=== PATIENT | female | born 1995 | race African-American/Black ===

== ENCOUNTER 2016-09-15 14:56 | Emergency (ER) | payer OTHER ==
[2016-09-15] MEDS ORDERED: SODIUM CHLORIDE 0.9% 1,000 ML IV STA (16:47)
--- NOTE | 2016-09-15 16:49 | ED ---
General Adult HPI - General Chief complaint: Vaginal Bleeding Stated complaint: Female WILL Time Seen by Provider: 09/15/16 16:40 Source: patient, RN notes reviewed Mode of arrival: ambulatory Limitations: no limitations - History of Present Illness Initial comments: Patient is a 20-year-old female with no significant past medical history, who presents emergency room today with chief complaint of vaginal bleeding over the last 2 weeks. She does admit that she's approximately 2 months from last menstrual cycle. She states she did go to clinic earlier today had ultrasound and was advised come here to the emergency room for further evaluation. States that they told her they saw line on the ultrasound. States he did not tell any other information. She does admit that pain comes and goes in the lower abdomen. She also admits that bleeding seems to come and go as well over the past 2 weeks. She states she's on average going through approximately 2 pads per day and she denies any other complaints or symptoms. Patient denies any recent fever, chills, shortness of breath, chest pain, back pain, abdominal pain, nausea or vomiting, numbness or tingling, dysuria or hematuria, constipation or diarrhea, headaches or visual changes, or any other complaints. - Related Data Home Medications Medication Instructions Recorded Confirmed Albuterol Inhaler [Ventolin Hfa 2 puff INHALATION RT-Q6H PRN 09/15/16 09/15/16 Inhaler] Pnv,Calcium 72/Iron/Folic Acid 1 tab PO DAILY 09/15/16 09/15/16 [ Plus Tablet] Allergies Allergy/AdvReac Type Severity Reaction Status Date / Time No Known Allergies Allergy Verified 09/15/16 16:38 Review of Systems ROS Statement: Those systems with pertinent positive or pertinent negative responses have been documented in the HPI. ROS Other: All systems not noted in ROS Statement are negative. Past Medical History Past Medical History: No Reported History History of Any Multi-Drug Resistant Organisms: None Reported Additional Past Surgical History / Comment(s): feet Past Psychological History: No Psychological Hx Reported Smoking Status: Never smoker Past Alcohol Use History: None Reported Past Drug Use History: None Reported General Exam - General Exam Comments Initial Comments: General: The patient is awake and alert, in no distress, and does not appear acutely ill. Eye: Pupils are equal, round and reactive to light, extra-ocular movements are intact. No nystagmus. There is normal conjunctiva bilaterally. No signs of icterus. Ears, nose, mouth and throat: There are moist mucous membranes and no oral lesions. Neck: The neck is supple, there is no tenderness or JVD. Cardiovascular: There is a regular rate and rhythm. No murmur, rub or gallop is appreciated. Respiratory: Lungs are clear to auscultation, respirations are non-labored, breath sounds are equal. No wheezes, stridor, rales, or rhonchi. Gastrointestinal: Soft, non-distended, non-tender abdomen without masses or organomegaly noted. There is no rebound or guarding present. No CVA tenderness. Bowel sounds are unremarkable. Musculoskeletal: Normal ROM, no tenderness. Strength 5/5. Sensation intact. Pulses equal bilaterally 2+. Neurological: A&O x 3. CN II-XII intact, There are no obvious motor or sensory deficits. Coordination appears grossly intact. Speech is normal. Skin: Skin is warm and dry and no rashes or lesions are noted. Psychiatric: Cooperative, appropriate mood & affect, normal judgment. Limitations: no limitations Course Vital Signs 09/15/16 09/15/16 09/15/16 15:10 17:15 18:26 Temperature 99.0 F Pulse Rate 114 H 73 84 Respiratory 16 18 16 Rate Blood Pressure 164/98 131/87 133/79 O2 Sat by Pulse 97 100 100 Oximetry Medical Decision Making - Medical Decision Making Patient reexamined at this time shows no signs of distress. Resting comfortably in the stretcher. Her ultrasound shows a left-sided ovarian cyst. She is no evidence of IUP. Patient's beta hCG greater than 4000. Patient has no abdominal pain. Abdomen is soft nontender. She does admit to vaginal bleeding over the last 2 weeks. She been using 2 pads per day. She is Rh+. His results were discussed with attending physician Dr. Foley. Patient will be discharged home advised follow-up with her SECURITY ENGINEER. She states she has an appointment in 2 days. She'll have a prescription to have repeat beta hCG testing in 2 days. Advised return here to the emergency room if any symptoms increase or worsen. She states understanding and is in agreement. - Lab Data Result diagrams: 09/15/16 17:40 09/15/16 17:40 Lab Results 09/15/16 09/15/16 09/15/16 Range/Units 17:40 17:40 17:40 WBC 6.4 (4.0-11.0) k/uL RBC 4.48 (3.80-5.40) m/uL Hgb 14.4 (11.4-16.0) gm/dL Hct 40.5 (34.0-46.0) % MCV 90.5 (80.0-100.0) fL MCH 32.2 (25.0-35.0) pg MCHC 35.6 (31.0-37.0) g/dL RDW 12.1 (11.5-15.5) % Plt Count 217 (150-450) k/uL Neutrophils % 64 % Lymphocytes % 27 % Monocytes % 3 % Eosinophils % 2 % Basophils % 1 % Neutrophils # 4.1 (1.3-7.7) k/uL Lymphocytes # 1.7 (1.0-4.8) k/uL Monocytes # 0.2 (0-1.0) k/uL Eosinophils # 0.1 (0-0.7) k/uL Basophils # 0.0 (0-0.2) k/uL Sodium 141 (137-145) mmol/L Potassium 4.1 (3.5-5.1) mmol/L Chloride 104 (98-107) mmol/L Carbon Dioxide 24 (22-30) mmol/L Anion Gap 13 mmol/L BUN 11 (7-17) mg/dL Creatinine 0.70 (0.52-1.04) mg/dL Est GFR (MDRD) Af Amer >60 (>60 ml/min/1.73 sqM) Est GFR (MDRD) Non-Af >60 (>60 ml/min/1.73 sqM) Glucose 72 L (74-99) mg/dL Calcium 10.0 (8.4-10.2) mg/dL Total Bilirubin 0.6 (0.2-1.3) mg/dL AST 30 (14-36) U/L ALT 23 (9-52) U/L Alkaline Phosphatase 50 (38-126) U/L Total Protein 8.0 (6.3-8.2) g/dL Albumin 4.8 (3.5-5.0) g/dL HCG, Quant 4852.2 mIU/mL Urine Color Urine Appearance (Clear) Urine pH (5.0-8.0) Ur Specific Marydel (1.001-1.035) Urine Protein (Negative) Urine Glucose (UA) (Negative) Urine Ketones (Negative) Urine Blood (Negative) Urine Nitrite (Negative) Urine Bilirubin (Negative) Urine Urobilinogen (<2.0) mg/dL Ur Leukocyte Esterase (Negative) Ur Squamous Epith Cells (0-4) /hpf Blood Type O Positive Blood Type Recheck No 09/15/16 Range/Units 17:40 WBC (4.0-11.0) k/uL RBC (3.80-5.40) m/uL Hgb (11.4-16.0) gm/dL Hct (34.0-46.0) % MCV (80.0-100.0) fL MCH (25.0-35.0) pg MCHC (31.0-37.0) g/dL RDW (11.5-15.5) % Plt Count (150-450) k/uL Neutrophils % % Lymphocytes % % Monocytes % % Eosinophils % % Basophils % % Neutrophils # (1.3-7.7) k/uL Lymphocytes # (1.0-4.8) k/uL Monocytes # (0-1.0) k/uL Eosinophils # (0-0.7) k/uL Basophils # (0-0.2) k/uL Sodium (137-145) mmol/L Potassium (3.5-5.1) mmol/L Chloride (98-107) mmol/L Carbon Dioxide (22-30) mmol/L Anion Gap mmol/L BUN (7-17) mg/dL Creatinine (0.52-1.04) mg/dL Est GFR (MDRD) Af Amer (>60 ml/min/1.73 sqM) Est GFR (MDRD) Non-Af (>60 ml/min/1.73 sqM) Glucose (74-99) mg/dL Calcium (8.4-10.2) mg/dL Total Bilirubin (0.2-1.3) mg/dL AST (14-36) U/L ALT (9-52) U/L Alkaline Phosphatase (38-126) U/L Total Protein (6.3-8.2) g/dL Albumin (3.5-5.0) g/dL HCG, Quant mIU/mL Urine Color Colorless Urine Appearance Clear (Clear) Urine pH 7.5 (5.0-8.0) Ur Specific Marydel 1.002 (1.001-1.035) Urine Protein Negative (Negative) Urine Glucose (UA) Negative (Negative) Urine Ketones Negative (Negative) Urine Blood Small H (Negative) Urine Nitrite Negative (Negative) Urine Bilirubin Negative (Negative) Urine Urobilinogen <2.0 (<2.0) mg/dL Ur Leukocyte Esterase Negative (Negative) Ur Squamous Epith Cells <1 (0-4) /hpf Blood Type Blood Type Recheck Disposition Clinical Impression: Threatened Disposition: HOME SELF-CARE Condition: Good Instructions: Threatened Miscarriage (ED) Additional Instructions: Please follow-up with your scheduled appointment with her SECURITY ENGINEER in 2 days. Please have repeat blood test performed in 2 days here at the outpatient lab. Please return to emergency room if symptoms increase or worsen or for any other concerns as discussed. Referrals: Ernie Crain DO [Primary Care Provider] - 1-2 days Time of Disposition: 18:42
[2016-09-15 17:56] LABS: Basophils % (A) 1 %; CH 32.1; CHCM 35.6; Eosinophils # (A) 0.1 k/uL (0-0.7); Eosinophils % (A) 2 %; HCT 40.5 % (34.0-46.0); HDW 2.36; HGB 14.4 gm/dL (11.4-16.0); Luc # (Auto) 0.19; Luc % (Auto) 3; Lymphocytes # (A) 1.7 k/uL (1.0-4.8); Lymphocytes % (A) 27 %; MCH 32.2 pg (25.0-35.0); MCHC 35.6 g/dL (31.0-37.0); MCV 90.5 fL (80.0-100.0); Mean Platelet Volume 6.7; Monocytes # (A) 0.2 k/uL (0-1.0); Monocytes % (A) 3 %; Neutrophils # (A) 4.1 k/uL (1.3-7.7); Neutrophils % (A) 64 %; RBC 4.48 m/uL (3.80-5.40); RDW 12.1 % (11.5-15.5); WBC 6.4 k/uL (4.0-11.0); WBC (Perox) 6.44
[2016-09-15 18:08] LABS: ALT 23 U/L (9-52); AST 30 U/L (14-36); Alkaline Phosphatase 50 U/L (38-126); Anion Gap 13 mmol/L; Blood Urea Nitrogen 11 mg/dL (7-17); Carbon Dioxide 24 mmol/L (22-30); Chloride 104 mmol/L (98-107); Glucose 72 mg/dL (74-99); Non-African American GFR(MDRD) >60 (>60 ml/min/1.73 sqM); Potassium 4.1 mmol/L (3.5-5.1); Sodium 141 mmol/L (137-145); Total Bilirubin 0.6 mg/dL (0.2-1.3)
[2016-09-15 18:10] LABS: Appearance,Urine Clear (Clear); Bilirubin,Urine Negative (Negative); Glucose,Urine (UA) Negative (Negative); Ketones,Urine Negative (Negative); Leukocyte Esterase,Urine Negative (Negative); Nitrite,Urine Negative (Negative); PH, Urine 7.5 (5.0-8.0); Particle Count 358; Protein,Urine Negative (Negative); Specific Gravity,Urine 1.002 (1.001-1.035); Squamous Epithelial Cell,Urine <1 /hpf (0-4); UA Billing (MACRO vs. MICRO) MICRO; Urobilinogen,Urine <2.0 mg/dL (<2.0)
[2016-09-15 18:24] LABS: HCG,Quantitative Serum 4852.2 mIU/mL
--- NOTE | 2016-09-15 18:31 | US ---
EXAMINATION TYPE: US OB <=14 wks transvag DATE OF EXAM: 09/15/2016 COMPARISON: NONE CLINICAL HISTORY: Pain. Spotting EXAM PERFORMED: Transvaginal (TV) and Transabdominal (TA) EXAM MEASUREMENTS: GESTATIONAL AGE / DATING Physician Established: Not established Dates by LMP: (6 weeks/6 days) EDC: 05/05/2017 Dates by First Scan: No previous Dates by Current Scan for: No IUP visualized on this exam MATERNAL ANATOMY Uterus: 7.0 x 3.5 x 4.0 cm Right Ovary: 3.4 x 1.9 x 2.0 cm Left Ovary: 4.8 x 3.7 x 4.6 cm. Cystic area with internal septations visualized within left ovary mitali suring 4.3 x 3.3 x 4.1 cm Post CDS / Adnexa: Free fluid visualized adjacent to left ovary Presence of free fluid: Yes Presence of subchorionic bleed: No GESTATION / SURVEY IUP: No IUP seen at this time Date of LMP: 07/29/2016 Beta HcG (if available): Not available at time of exam No IUP visualized at this time. Cystic area visualized within left ovary measuring 4.3 x 3.3 x 4.1 cm IMPRESSION: There is no evidence of a gestational sac. There is a 4 cm left ovarian cyst. Normal uterus and endom etrium.
[2016-09-15 19:25] VITALS: BP 135/83; PULSE 80; RESP 18; TEMP 98
== END 2016-09-15 17:15 | disposition home or self-care (01) ==
LOC: EC 14:56
DX: O20.0 Threatened abortion (principal); O34.81 Maternal care for other abnormalities of pelvic organs, first trimester; N83.202 Unspecified ovarian cyst, left side; Z3A.01 Less than 8 weeks gestation of pregnancy; Z79.899 Other long term (current) drug therapy
CPT/HCPCS: 36415; 76801; 76817; 80053; 81001; 84702; 85025; 86900; 86901; 87086; 93976; 96360; 99284

== ENCOUNTER → 2016-09-17 | Outpatient (CLI) | payer OTHER | END | disposition home or self-care (01) | LOC: LABWHC1 13:45 | PROVIDERS: ATTEND Obstetrics & Gynecology | DX: O20.0 Threatened abortion (principal) | CPT/HCPCS: 36415; 84702 ==

== ENCOUNTER → 2016-09-24 | Outpatient (CLI) | payer OTHER ==
--- NOTE | 2016-09-24 12:07 | US ---
EXAMINATION TYPE: US OB <=14 wks transvag DATE OF EXAM: 09/24/2016 COMPARISON: US 09/15/2016 CLINICAL HISTORY: Z34.01 1ST TRI.. Confirm dates and viability. EXAM PERFORMED: Transvaginal (TV) and Transabdominal (TA) EXAM MEASUREMENTS: GESTATIONAL AGE / DATING Physician Established: Not established. Dates by LMP: (8 weeks/1 days) EDC: 05/05/2017 Dates by first scan: No IUP visualized on first exam Dates by Current Scan for: No IUP visualized on this exam. MATERNAL ANATOMY Uterus: 8.0 x 3.2 x 4.9 cm Right Ovary: 2.7 x 2.2 x 1.9 cm Left Ovary: 3.1 x 2.2 x 2.3 cm, Cystic area seen= 2.1 x 1.5 x 1.5 cm. Post CDS / Adnexa: Free fluid seen in the cul de sac. Presence of free fluid: Yes Presence of corpus luteal cyst: No Presence of subchorionic bleed: No GESTATION / SURVEY IUP: No IUP seen at this time Date of LMP: 07/29/2018 Beta HcG (if available): Not available. No IUP visualized at this time, Left ovarian cyst seen and free fluid in the cul de sac. IMPRESSION: No intrauterine identified in this time. 2.1 cm cyst left adnexa is present. Correlate with beta hCG. Normal too early to detect, ectopic , or missed all within the differential diagnosis.
== END | disposition home or self-care (01) ==
LOC: LABWHC1 09-17 12:39
PROVIDERS: ATTEND Obstetrics & Gynecology
DX: O34.81 Maternal care for other abnormalities of pelvic organs, first trimester (principal)
CPT/HCPCS: 76801; 76817

== ENCOUNTER → 2016-09-25 | Outpatient (CLI) | payer OTHER | END | disposition home or self-care (01) | LOC: LABWHC1 09:43 | PROVIDERS: ATTEND Obstetrics & Gynecology | DX: O20.0 Threatened abortion (principal) | CPT/HCPCS: 36415; 84702 ==

== ENCOUNTER → 2018-05-16 | Outpatient (CLI) | payer OTHER ==
--- NOTE | 2018-05-16 11:13 | US ---
EXAMINATION TYPE: US OB anatomy transabd DATE OF EXAM: 05/16/2018 COMPARISON: NONE HISTORY: Z34.90 Encounter for supervision of normal pregnan TECHNIQUE: Transabdominal (TA) EXAM MEASUREMENTS: GESTATIONAL AGE / DATING Physician Established: (20 weeks/2 days) EDC: 10/01/2018 Dates by LMP: (20 weeks/2 days) EDC: 10/01/2018 Dates by First Scan: NO PREVIOUS Dates by Current Scan for: (22 weeks/2 days) EDC: 09/17/2018 SURVEY IUP: Single PLACENTA: Posterior PREVIA: No previa TERI: 18.9 cm CERVICAL LENGTH (transabdominal: norm > 3.0cm): 3.4 cm BIOMETRY PRESENTATION: Vertex LIE: Oblique BPD: 5.3 cm 22 weeks / 1 days HC: 20 cm 22 weeks / 1 days AC: 17.5 cm 22 weeks / 3 days FL: 3.8 cm 22 weeks / 1 days ESTIMATED WEIGHT IN GRAMS: 489 grams ESTIMATED WEIGHT IN LBS/OZ: 1 lbs. 1 oz. WEIGHT PERCENTAGE BASED ON ESTABLISHED DATE: 97 % HC/AC: 1.1 Normal FL/AC: 19 Normal HEART RATE: 141 bpm RHYTHM: Normal ANATOMY SEEN (within normal limits): * Lateral Vent (< 1 cm) 0.7 cm * Cisterna Magna (< 1.1 cm) 0.4 cm * Nuchal Fold (< 0.6 cm) 0.3 cm * Cerebellum (varies with age) 2.4 cm Choroid Plexus (bilateral) Midline Falx Cavus Septi Pellucidi Four Chamber Heart Outflow tracts: LVOT/RVOT Stomach Situs Nose / Lips Diaphragm Bladder Cord Insert Three Vessel Cord Longitudinal Spine Transverse Spine Arms (bilateral) Legs (bilateral) ANATOMY SEEN (does not appear within normal limits): Kidneys (bilateral) RIGHT DILATATION OF 0.3 CM Single live intrauterine gestation is confirmed. Normal cephalad presentation to fetus is identified. No ultrasound evidence for placenta previa. Amniotic fluid index is calculated upper limits of norbert l. No cervical thinning is seen. biometry measurements are congruent and felt within normal limits. Detailed anatomical survey d uring real-time scanning shows prominence of right kidney proximal ureter. No calyceal extension is c learly seen on images saved. Images saved show suboptimal visualization of heart outflow tracts and f our-chamber heart. IMPRESSION: As above, moderate right-sided hydroureter noted.
== END | disposition home or self-care (01) ==
LOC: RADUSWWP 09:30
PROVIDERS: ATTEND Obstetrics & Gynecology
DX: O26.832 Pregnancy related renal disease, second trimester (principal); N13.4 Hydroureter; Z3A.22 22 weeks gestation of pregnancy
CPT/HCPCS: 76811

== ENCOUNTER → 2018-07-11 | Outpatient (CLI) | payer OTHER ==
--- NOTE | 2018-07-11 15:10 | US ---
EXAMINATION TYPE: US OB >= 14 wk fetus DATE OF EXAM: 07/11/2018 COMPARISON: Second trimester ultrasound May 16, 2018. CLINICAL HISTORY: Z34.90 SUPERVISION OF NORMAL PREGNANCYGrowth, kidneys TECHNIQUE: Transabdominal (TA) GESTATIONAL AGE / DATING Physician Established: (28 weeks/2 days) EDC: 10/01/2018 Dates by Current Scan: (30 weeks/1 days) EDC: 09/18/2018 SURVEY IUP: Single PLACENTA: Posterior PREVIA: No Previa TERI: 13.5 cm Normal CERVICAL LENGTH (transabdominal: norm > 3.0cm): 3.3 cm BIOMETRY PRESENTATION: Vertex BPD: 7.7 cm 31 weeks / 0 days HC: 27.9 cm 30 weeks / 4 days AC: 24.3 cm 28 weeks / 4 days FL: 6.0 cm 31 weeks / 1 days ESTIMATED WEIGHT IN GRAMS: 1455 grams ESTIMATED WEIGHT IN LBS/OZ: 3 lbs. 3 oz. WEIGHT PERCENTAGE BASED ON ESTABLISHED DATES: 89.3% HC/AC: 1.2 Normal FL/AC: 24.6 Abnormal HEART RATE: 165 bpm RHYTHM: Normal Single live intrauterine gestation is redemonstrated. No cervical thinning is seen. Normal cephalad p resentation to fetus is noted. There is no ultrasound evidence for placenta previa. Amniotic fluid in dex is calculated within normal limits. biometry measurements are congruent and felt within nor mal limits except for FL/AC which is slightly elevated from normal range. Estimated weight is upper l imits of normal. Kidneys are noted within normal limits during real-time scanning and still images sa joshua without hydronephrosis identified. IMPRESSION: As above
== END | disposition home or self-care (01) ==
LOC: RADUSWWP 13:27
PROVIDERS: ATTEND Obstetrics & Gynecology
DX: Z34.90 Encounter for supervision of normal pregnancy, unspecified, unspecified trimester (principal); Z3A.30 30 weeks gestation of pregnancy
CPT/HCPCS: 76805

== ENCOUNTER → 2018-09-09 | Outpatient (CLI) | payer OTHER ==
--- NOTE | 2018-09-09 08:14 | US ---
EXAMINATION TYPE: US OB >= 14 wk fetus DATE OF EXAM: 09/09/2018 COMPARISON: US 07/11/18, 05/16/18 CLINICAL HISTORY: Z34.90 Encounter for supervision of normal TECHNIQUE: Transabdominal (TA) GESTATIONAL AGE / DATING Physician Established: (36 weeks/6 days) EDC: 10/01/18 Dates by LMP: 12/25/17 (36 weeks/6 days) EDC: 10/01/18 Dates by First Scan: (38 weeks/5 days) EDC: 09/17/18 Dates by Current Scan: (36 weeks/6 days) EDC: 10/01/17 SURVEY IUP: viable PLACENTA: Posterior PREVIA: no TERI: 13.4 cm wnl CERVICAL LENGTH (transabdominal: norm > 3.0cm): 3.0 cm BIOMETRY PRESENTATION: cephalad LIE: longitudinal BPD: 9.3 cm 37 weeks / 4 days HC: 31.4 cm 35 weeks / 1 days AC: 33.5 cm 37 weeks / 3 days FL: 7.5 cm 38 weeks / 4 days ESTIMATED WEIGHT IN GRAMS: 3217 grams ESTIMATED WEIGHT IN LBS/OZ: 7 lbs. 1 oz. WEIGHT PERCENTAGE BASED ON ESTABLISHED DATES: 71.8% HC/AC: 0.94 wnl FL/AC: 22.5 wnl HEART RATE: 135 bpm RHYTHM: wnl Single live intrauterine gestation is redemonstrated. No suspicious cervical thinning. Normal cephala d presentation to the fetus is identified. biometry measurements are concordant and felt within normal limits. Amniotic fluid index is calculated within normal limits. IMPRESSION: As above, satisfactory progression in biometry measurements from most recent ultrasound
== END ==
LOC: RADUSWWP 07:07
PROVIDERS: ATTEND Obstetrics & Gynecology
DX: Z34.93 Encounter for supervision of normal pregnancy, unspecified, third trimester (principal); Z3A.38 38 weeks gestation of pregnancy
CPT/HCPCS: 76805

== ENCOUNTER 2018-09-13 18:00 | Inpatient (IN) | payer OTHER ==
[2018-09-13 19:00] LABS: Amphetamine Screen,Urine Not Detected (NotDetected); Barbiturate Screen,Urine Not Detected (NotDetected); Benzodiazepines Screen,Urine Not Detected (NotDetected); Cocaine Screen,Urine Not Detected (NotDetected); Methadone Screen, Urine Not Detected (NotDetected); Opiate Screen,Urine Not Detected (NotDetected); Oxycodone Screen, Urine Not Detected (NotDetected); Phencyclidine Screen,Urine Not Detected (NotDetected); Tricyclic Antidepressant,Urine Not Detected (NotDetected); Urn Cannabinoid Scrn Not Detected (NotDetected)
[2018-09-13] MEDS ORDERED: METHYLERGONOVINE 0.2 MG/ML 1 ML AMP IM PRN (19:27)
[2018-09-13] MEDS ORDERED: PENICILLIN G POTASSIUM 5,000,000 UNIT in DEXTROSE 5% IN WATER 100 ML IVPB STA ×2 (19:27)
[2018-09-13] MEDS ORDERED: LIDOCAINE 0.5% (PF) 5 MG/ML (50 ML SDV) SQ PRN (19:27)
[2018-09-13] MEDS ORDERED: TERBUTALINE 1 MG/ML VIAL SQ PRN (19:27)
[2018-09-13] MEDS ORDERED: OXYTOCIN 10 UNIT/ML 1 ML VIAL IM PRN (19:27)
[2018-09-13] MEDS ORDERED: CARBOPROST TROMETHAMINE 250 MCG/ML 1 ML AMP IM PRN (19:27)
[2018-09-13] MEDS: LACTATED RINGERS 1,000 ML IV SCH ×2 (19:36→20:37)
[2018-09-13 19:57] LABS: Basophils % (A) 0 %; Eosinophils # (A) 0.3 k/uL (0-0.7); Eosinophils % (A) 3 %; HCT 34.4 % (34.0-46.0); Lymphocytes # (A) 1.1 k/uL (1.0-4.8); Lymphocytes % (A) 12 %; MCH 28.2 pg (25.0-35.0); MCHC 31.9 g/dL (31.0-37.0); MCV 88.6 fL (80.0-100.0); Mean Platelet Volume 7.7; Monocytes # (A) 0.5 k/uL (0-1.0); Monocytes % (A) 5 %; Neutrophils # (A) 7.6 k/uL (1.3-7.7); Neutrophils % (A) 78 %; Platelet Count 274 k/uL (150-450); RBC 3.89 m/uL (3.80-5.40); RDW 14.1 % (11.5-15.5); WBC 9.8 k/uL (3.8-10.6)
--- NOTE | 2018-09-13 20:09 | P.HPOB ---
History of Present Illness H&P Date: 09/13/18 Chief Complaint: Contractions This is a 22-year-old 2 para 0 woman who has an estimated due date of 10/01/2018 who presents at 37-3/7 weeks gestation with contractions. She is a patient of Dr. Esteves is at [facility] however did not have transportation down to the hospital in a timely fashion. She therefore came here. Upon initial evaluation in labor and delivery triage she was found to be 4 cm dilated and did progress to 5 cm dilated over observation.. She was found to be luigi strongly every 2-5 minutes. She reports she has had an unco mplicated . Specifically she denies elevated blood pressure, gestational diabetes, labor, or concerns based on ultrasound or testing. Currently she denies leakage of fluids or vaginal bleeding. She has no knowledge of being Rh- for group B strep positive. Review of Systems All systems: negative Past Medical History Past Medical History: No Reported History, Asthma History of Any Multi-Drug Resistant Organisms: None Reported Additional Past Surgical History / Comment(s): feet Smoking Status: Never smoker Medications and Allergies Home Medications Medication Instructions Recorded Confirmed Type Albuterol Inhaler [Ventolin Hfa 2 puff INHALATION RT-Q6H PRN 09/15/16 09/13/18 History Inhaler] Pnv,Calcium 72/Iron/Folic Acid 1 tab PO DAILY 09/15/16 09/13/18 History [ Plus Tablet] Allergies Allergy/AdvReac Type Severity Reaction Status Date / Time No Known Allergies Allergy Verified 09/13/18 18:16 Exam Vital Signs Temp Pulse Resp BP 09/13/18 19:22 97.5 F L 70 18 135/79 Intake and Output 09/13/18 09/13/18 09/13/18 06:59 14:59 22:59 Other: Weight 69.4 kg This is a uncomfortable-appearing visibly gravid -[place] female. HEENT exam is unremarkable. Her breathing is unlabored. Her heart is a regular rate and rhythm. The abdomen is gravid appearing size consistent with stated dates. On pelvic examination the cervix is 5 cm dilated 100% effaced and the vertex is in the -1 station. Artificial rupture of membranes is undertaken and clear fluid is noted. She has no swelling of the lower extremities or obvious skin rashes or lesions. Mood and affect are appropriate for situation. Results Result Diagrams: 09/13/18 19:45 Abnormal Lab Results - Last 24 Hours (Table) 09/13/18 Range/Units 19:45 Hgb 11.0 L (11.4-16.0) gm/dL Assessment and Plan (1) 37 weeks gestation of Current Visit: Yes Status: Acute Code(s): Z3A.37 - 37 WEEKS GESTATION OF SNOMED Code(s): 83904553 (2) Spontaneous onset of labor Current Visit: Yes Status: Acute Code(s): BKK7873 - SNOMED Code(s): 60006179 Plan: This is a 22-year-old 2 para 0010 woman who presents having received care elsewhere in spontaneous active labor. She is 37-3/7 weeks gestation. Group B strep status is unknown and therefore prophylactic antibiotics have been initiated. Medical records have been requested from [facility]. status is currently reassuring by external monitoring. She may receive an epidural anesthetic for analgesia. I anticipate normal spontaneous vaginal delivery.
[2018-09-13] MEDS ORDERED: fentaNYL (PF) 50 MCG/ML 5 ML AMP ONE (20:10)
[2018-09-13] MEDS ORDERED: ROPIVACAINE 5MG/ML 20ML VIAL ONE (20:10)
[2018-09-13] MEDS ORDERED: SODIUM CHLORIDE 0.9% 100 ML BAG ONE (20:10)
[2018-09-13 21:15] VITALS: BMI 21.3
[2018-09-13] MEDS ORDERED: SIMETHICONE 80 MG CHEWABLE PO PRN (22:47)
[2018-09-13] MEDS ORDERED: LANOLIN CREAM 5 GM TUBE TOPICAL PRN (22:47)
[2018-09-13] MEDS ORDERED: diphenhydrAMINE 50 MG/ML 1 ML VIAL IVP PRN ×2 (22:47)
[2018-09-13] MEDS ORDERED: HYDROcodone/APAP 5-325MG 1 EACH TAB PO PRN (22:47)
[2018-09-13] MEDS ORDERED: BENZOCAINE/MENTHOL SPRAY 1 GM/SPRAY AEROSOL TOPICAL PRN (22:47)
[2018-09-13] MEDS ORDERED: ZOLPIDEM 5 MG TAB PO PRN (22:47)
[2018-09-13] MEDS ORDERED: diphenhydrAMINE 25 MG CAP PO PRN (22:47)
[2018-09-13] MEDS ORDERED: WITCH HAZEL 1 EACH MED..PAD TOPICAL PRN (22:47)
[2018-09-13] MEDS ORDERED: diphenhydrAMINE 50 MG CAP PO PRN (22:47)
[2018-09-13] MEDS ORDERED: HYDROCORTISONE 2.5% RECTAL CREAM 30 GM TUBE RECTAL PRN (22:47)
[2018-09-13] MEDS ORDERED: ACETAMINOPHEN TAB 325 MG TAB PO PRN (22:47)
--- NOTE | 2018-09-13 22:47 | P.PROBDLV ---
Vaginal Delivery Note - . Vaginal Delivery Note: Findings: Male infant in the left occiput anterior position with nuchal cord 1. Apgars of 9 at 1 minute and 9 at 5 minutes. Weight 7 lbs. 8 oz., 3415 g. Intact, three-vessel cord placenta. Bilateral labial lacerations. EBL 250 mL's. Delivery summary: This is a 22-year-old 2 para 0010 woman who presented from the receiving care elsewhere in spontaneous active labor at approximately 37-3/7 weeks gestation. We were able to get some inf ormation from [facility] confirmed group B strep negative and Rh+ status. Upon admission she was 5 cm dilated. She underwent artificial rupture of membranes and clear fluid was noted. She received an epidural anesthetic. She reached complete cervical dilation approximately 2 hours after rupture of membranes. She commenced pushing with excellent maternal effort. heart tones were category 2 throughout second stage of labor. With the patient was repositioned, prepped and draped in the dorsal modified Mati position. With additional maternal effort the head did deliver from the left occiput anterior position. A nuchal cord 1 was reduced. The anterior followed by the posterior shoulders were then delivered without difficulty and the rest the infant was delivered onto the field. The nose and mouth were bulb suctioned. The infant was placed on the maternal abdomen. Apgars were 9 at 1 minute and 9 at 5 minutes. Eventually the cord was clamped and cut and the was taken to the warmer. An intact, three-vessel cord placenta was expressed after approximately 5 minute third stage of labor. The perineum and vagina were inspected and bilateral labial lacerations were noted. This was infused with lidocaine and repaired with 3-0 Vicryl suture to achieve the best possible cosmetic effect. The rest of the vagina was inspected no further lac erations were noted. The uterus was massaged and was noted to be firm. EBL was 250 mL's. The uterus was firm and approximately 4 cm below the umbilicus following delivery. Both mother and were doing well post delivery in the room. All counts were correct.
[2018-09-13] MEDS ORDERED: OXYTOCIN 20 UNITS/1000 ML NS 1,000 ML IV SCH (23:00)
[2018-09-13 23:30] VITALS: RESP 16
[2018-09-13] MEDS ORDERED: PENICILLIN G POTASSIUM 2,500,000 UNIT in DEXTROSE 5% IN WATER 100 ML IVPB SCH ×2 (23:30)
[2018-09-13] MEDS: IBUPROFEN 600 MG TAB PO PRN (23:46)
[2018-09-14 07:03] LABS: Basophils % (A) 0 %; Eosinophils # (A) 0.2 k/uL (0-0.7); Eosinophils % (A) 2 %; Lymphocytes # (A) 1.5 k/uL (1.0-4.8); Lymphocytes % (A) 13 %; MCH 29.4 pg (25.0-35.0); MCHC 33.2 g/dL (31.0-37.0); MCV 88.5 fL (80.0-100.0); Monocytes # (A) 0.5 k/uL (0-1.0); Monocytes % (A) 5 %; Neutrophils # (A) 8.9 k/uL (1.3-7.7); Neutrophils % (A) 78 %; Platelet Count 237 k/uL (150-450); RBC 3.39 m/uL (3.80-5.40); RDW 13.4 % (11.5-15.5); WBC 11.5 k/uL (3.8-10.6)
[2018-09-14] MEDS: IBUPROFEN 600 MG TAB PO PRN ×2 (08:26→16:18)
[2018-09-14] MEDS: SENNOSIDES-DOCUSATE SODIUM 1 EACH TAB PO SCH (08:26)
--- NOTE | 2018-09-14 08:34 | P.PNOBGVD ---
Subjective - Subjective Principal diagnosis: PPD 1 Interval history: Patient is doing well . On this day #1 she is ambulating and voiding without difficulty. She is tolerating a regular diet without nausea or vomiting. She states her pain is controlled with oral ibuprofen. She notes lochia to be moderate in nature. Patient reports: Reports appetite normal, Reports voiding normally, Reports pain well controlled, Reports ambulating normally [place]: doing well Objective - Latest Vital Signs Latest vital signs: Vital Signs Temp Pulse Resp BP Pulse Ox 09/14/18 04:00 98.9 F 89 16 107/67 100 09/14/18 00:46 98.2 F 96 16 137/66 09/14/18 00:16 98.3 F 107 H 16 135/81 09/13/18 23:46 91 16 135/82 09/13/18 23:31 88 16 130/74 09/13/18 23:16 98.0 F 93 16 128/73 09/13/18 23:01 96 16 135/82 09/13/18 22:46 98.5 F 110 H 16 126/68 09/13/18 19:22 97.5 F L 70 18 135/79 Intake and Output 09/13/18 09/14/18 09/14/18 22:59 06:59 14:59 Intake Total 1000 1300 Balance 1000 1300 Intake: Intake, IV Titration 1000 1300 Amount Lactated Ringers 1,000 ml 1000 300 @ 125 mls/hr IV .Q8H BENJAMIN Rx#:[id number] Oxytocin 20 Units/1000 ml 1000 Ns 1,000 ml @ Per Protocol IV .Q0M BENJAMIN Rx#: [id number] Other: # Voids 3 1 Weight 69.4 kg - Exam Extremities: Present: normal Abdomen: Present: normal appearance, soft Uterus: Present: normal, firm - Labs Labs: Abnormal Lab Results - Last 24 Hours (Table) 09/13/18 09/14/18 Range/Units 19:45 06:45 WBC 11.5 H (3.8-10.6) k/uL RBC 3.39 L (3.80-5.40) m/uL Hgb 11.0 L 10.0 L (11.4-16.0) gm/dL Hct 30.0 L (34.0-46.0) % Neutrophils # 8.9 H (1.3-7.7) k/uL Assessment and Plan (1) Status post normal vaginal delivery Current Visit: Yes Status: Acute Code(s): ACL3000 - SNOMED Code(s): 036936207 (2) 37 weeks gestation of Current Visit: Yes Status: Acute Code(s): Z3A.37 - 37 WEEKS GESTATION OF SNOMED Code(s): 30798965 Plan: We will continue routine post care and anticipate discharge home tomorrow.
[2018-09-15] MEDS: SENNOSIDES-DOCUSATE SODIUM 1 EACH TAB PO SCH ×2 (04:42→07:46)
[2018-09-15 07:43] VITALS: BP 119/68; PULSE 88; TEMP 98.1
--- NOTE | 2018-09-15 08:38 | P.DS ---
Providers Date of admission: 09/13/18 19:23 Expected date of discharge: 09/15/18 Attending physician: Queenie Billings Primary care physician: Stated None - Discharge Diagnosis(es) (1) 37 weeks gestation of Current Visit: Yes Status: Acute (2) Spontaneous onset of labor Current Visit: Yes Status: Acute (3) Status post normal vaginal delivery Current Visit: Yes Status: Acute (4) Nuchal cord Current Visit: Yes Status: Acute (5) Obstetric labial laceration, delivered, current hospitalization Current Visit: Yes Status: Acute Hospital Course: This is a 22-year-old 2 now para 1011 woman who presented having received care elsewhere in active labor. She is 37-3/7 weeks gestation. Following admission she underwent artificial rupture of membranes and received an epidural anesthetic. She had a rapid first stage of labor. Her second stage of labor was uncomplicated and she went on to deliver a liveborn male infant over intact perineum with bilateral labial lacerations. These were repaired in the usual fashion. weighed 7 lbs. 8 oz. and had Apgars of 9 at 1 minute and 9 at 5 minutes. The patient's course was unremarkable. She is able to ambulate and void without difficulty, her vital signs were stable and her perineum was well healing. She was discharged home on day #2 with routine instructions for care and follow-up Procedures: Normal spontaneous vaginal delivery Patient Condition at Discharge: Good Plan - Discharge Summary New Discharge Prescriptions: No Action Pnv,Calcium 72/Iron/Folic Acid [ Plus Tablet] 1 tab PO DAILY Albuterol Inhaler [Ventolin Hfa Inhaler] 2 puff INHALATION RT-Q6H PRN PRN Reason: Shortness Of Breath Discharge Medication List Albuterol Inhaler [Ventolin Hfa Inhaler] 2 puff INHALATION RT-Q6H PRN 09/15/16 [History] Pnv,Calcium 72/Iron/Folic Acid [ Plus Tablet] 1 tab PO DAILY 09/15/16 [History] Follow up Appointment(s)/Referral(s): Onel Esteves DO [REFERRING] - 6 Weeks Activity/Diet/Wound Care/Special Instructions: Follow-up in the office in 6 weeks . Call with any concerning signs or symptoms including heavy vaginal bleeding, severe abdominal pain, fever greater than 101, swelling or redness of the lower extremities, foul vaginal discharge, or signs of depression. Nothing in the vagina for 6 weeks after delivery, specifically no intercourse. Discharge Disposition: HOME SELF-CARE
== END 2018-09-15 13:01 | disposition home or self-care (01) | DRG 807 ==
LOC: FBPOP 18:00 → 4FBP 19:23
PROVIDERS: ADMIT Obstetrics & Gynecology; ATTEND Obstetrics & Gynecology
PROC: 3E0R3BZ Introduction of Anesthetic Agent into Spinal Canal, Percutaneous Approach (ICD-10-PCS; principal; 2018-09-13)
PROC: 10907ZC Drainage of Amniotic Fluid, Therapeutic from Products of Conception, Via Natural or Artificial Opening (ICD-10-PCS; principal; 2018-09-13)
PROC: 00HU33Z Insertion of Infusion Device into Spinal Canal, Percutaneous Approach (ICD-10-PCS; principal; 2018-09-13)
PROC: 10E0XZZ Delivery of Products of Conception, External Approach (ICD-10-PCS; principal; 2018-09-13)
PROC: 0HQ9XZZ Repair Perineum Skin, External Approach (ICD-10-PCS; principal; 2018-09-13)
DX: O69.81X0 Labor and delivery complicated by cord around neck, without compression, not applicable or unspecified (principal); Z37.0 Single live birth; O70.0 First degree perineal laceration during delivery; Z3A.37 37 weeks gestation of pregnancy; Z79.899 Other long term (current) drug therapy
CPT/HCPCS: 59025; 80306; 85025; 86850; 86900; 86901; 99213

== ENCOUNTER → 2019-05-24 | Outpatient (CLI) | payer OTHER ==
[2019-05-25 14:26] VITALS: BMI 15.9
== END ==
LOC: DBWHC3 09:45
PROVIDERS: ATTEND Family Medicine
DX: R63.6 Underweight (principal); Z68.1 Body mass index [BMI] 19.9 or less, adult; K21.9 Gastro-esophageal reflux disease without esophagitis; K59.00 Constipation, unspecified
CPT/HCPCS: 97802

== ENCOUNTER 2019-08-08 13:59 | Emergency (ER) | payer OTHER ==
[2019-08-08 14:44] LABS: Basophils % (A) 0 %; Eosinophils # (A) 0.1 k/uL (0-0.7); Eosinophils % (A) 2 %; HCT 38.2 % (34.0-46.0); HGB 12.9 gm/dL (11.4-16.0); Lymphocytes # (A) 1.6 k/uL (1.0-4.8); Lymphocytes % (A) 42 %; MCH 31.7 pg (25.0-35.0); MCHC 33.7 g/dL (31.0-37.0); MCV 93.8 fL (80.0-100.0); Mean Platelet Volume 8.5; Monocytes # (A) 0.2 k/uL (0-1.0); Monocytes % (A) 6 %; Neutrophils # (A) 1.8 k/uL (1.3-7.7); Neutrophils % (A) 46 %; Platelet Count 179 k/uL (150-450); RBC 4.07 m/uL (3.80-5.40); RDW 13.3 % (11.5-15.5); WBC 3.8 k/uL (3.8-10.6)
[2019-08-08] MEDS ORDERED: ALPRAZolam 0.5 MG TAB PO STA (14:49)
[2019-08-08 14:55] LABS: ALT 13 U/L (4-34); AST 25 U/L (14-36); African American GFR (CKD) >90 (>60 ml/min/1.73 sqM); Albumin 4.8 g/dL (3.5-5.0); Alkaline Phosphatase 42 U/L (38-126); Anion Gap 8 mmol/L; Blood Urea Nitrogen 8 mg/dL (7-17); Calcium 9.5 mg/dL (8.4-10.2); Carbon Dioxide 28 mmol/L (22-30); Chloride 103 mmol/L (98-107); Glucose 75 mg/dL (74-99); Magnesium 1.9 mg/dL (1.6-2.3); Non-African American GFR(CKD) >90 (>60 ml/min/1.73 sqM); Potassium 3.6 mmol/L (3.5-5.1); Sodium 139 mmol/L (137-145); Total Bilirubin 0.9 mg/dL (0.2-1.3); Total Protein 7.8 g/dL (6.3-8.2)
[2019-08-08 15:02] LABS: D-Dimer 0.29 mg/L FEU (<0.60); Partial Thromboplastin Time 24.7 sec (22.0-30.0); Prothrombin Time 10.6 sec (9.0-12.0)
--- NOTE | 2019-08-08 15:46 | XR ---
EXAMINATION TYPE: XR chest 2V DATE OF EXAM: 08/08/2019 COMPARISON: None INDICATION: Chest pain TECHNIQUE: Frontal and lateral views of the chest are obtained. FINDINGS: The heart size is normal. The pulmonary vasculature is normal. The lungs are clear. IMPRESSION: 1. No acute pulmonary process.
--- NOTE | 2019-08-08 15:57 | ED ---
Chest Pain HPI - General Chief Complaint: Chest Pain Stated Complaint: Chest/Neck/Leg Pain Time Seen by Provider: 08/08/19 14:14 Source: patient Mode of arrival: ambulatory Limitations: no limitations - History of Present Illness Initial Comments: 23-year-old female presenting for multiple complaints. Patient states she has chest pain neck pain and leg pain pain all over. She states that she recently was taken off her Xanax and believes this may be due to anxiety. Patient states is sharp in nature, and going. Patient states she feels impeding doom, like she is going to . Denies chest pressure, DM, HTN, sickle cell. Occasional smoker. Denies heavy drinking. Denies abdominal pain, , she states at times she is SOB. Denies cough, fever, or URI symptoms. Patient denies nausea, vomiting, diarrhea, denies jaw pain. Denies famiyl history of premature CAD. Patient denies cocaine use. Pt denies additional complaints. Patient appears well on arrival no acute distress. During history I noticed patient focused how she was anxious and upset she was taken off her xanax after complaining to her PCP that 0.5mg "is like nothing, like come on" - Related Data Home Medications Medication Instructions Recorded Confirmed Albuterol Inhaler (Mhu) [Ventolin 2 puff INHALATION RT-Q6H PRN 09/15/16 09/13/18 Hfa Inhaler] Pnv,Calcium 72/Iron/Folic Acid 1 tab PO DAILY 09/15/16 09/13/18 [ Plus Tablet] Allergies Allergy/AdvReac Type Severity Reaction Status Date / Time milk AdvReac Unknown Verified 08/08/19 14:06 Review of Systems ROS Statement: Those systems with pertinent positive or pertinent negative responses have been documented in the HPI. ROS Other: All systems not noted in ROS Statement are negative. EKG Findings - EKG Comments: EKG Findings:: Ventricular rate 68 bpm, NM interval 112 ms, chest christian 80 ms, QT/QTC 352/374 ms. This is normal sinus rhythm. There is no ST elevation or depression. Normal R wave progression. Past Medical History Past Medical History: Asthma History of Any Multi-Drug Resistant Organisms: None Reported Past Surgical History: Orthopedic Surgery Additional Past Surgical History / Comment(s): feet Past Anesthesia/Blood Transfusion Reactions: No Reported Reaction Past Psychological History: Anxiety Smoking Status: Never smoker Past Alcohol Use History: None Reported Past Drug Use History: Marijuana - Past Family History Mother Family Medical History: No Reported History General Exam - General Exam Comments Initial Comments: General: The patient is awake and alert, in no distress Eye: +3 mm pupils are equal, round and reactive to light, extra-ocular movements are intact. No nystagmus. There is normal conjunctiva bilaterally. No signs of icterus. Ears, nose, mouth and throat: There are moist mucous membranes and no oral lesions. Neck: The neck is supple, there is no tenderness or JVD. Cardiovascular: There is a regular rate and rhythm. No murmur, rub or gallop is appreciated. Respiratory: Lungs are clear to auscultation, respirations are non-labored, breath sounds are equal. No wheezes, stridor, rales, or rhonchi. Gastrointestinal: Soft, non-distended, non-tender abdomen without masses or organomegaly noted. There is no rebound or guarding present. Musculoskeletal: Normal ROM, no tenderness. Strength 5/5. Sensation intact. Radial pulses equal bilaterally 2+. Neurological: A&O x 3. CN II-XII intact grossly, There are no obvious motor or sensory deficits. Coordination appears grossly intact. Speech is normal. Skin: Skin is warm and dry and no rashes or lesions are noted. No leg swelling or Edema, no calf pain. Psychiatric: Cooperative, appropriate mood & affect, normal judgment. Limitations: no limitations Course Vital Signs 08/08/19 08/08/19 14:04 16:29 Temperature 98.7 F 98.0 F Pulse Rate 80 76 Respiratory 20 18 Rate Blood Pressure 141/70 123/74 O2 Sat by Pulse 99 98 Oximetry Chest Pain MDM - MDM 23-year-old female presenting today for chief complaint of chest pain neck pain and leg pain patient states she believes is all due to anxiety. Patient denies any cough, fevers. Patient states she was recently taken off her Xanax. Patient denies a falls or trauma or injury to the area denies any redness or swelling of the joints. Patient denies any headache dizziness nausea vomiting abdominal pain patient denies . Patient EKG no acute findings. Dimer (-). Troponin (-), patient features did not appears typical and ongoing for days. Improvement with antianxiety medications. patient CXR clear. Patient will be discharged with PCP f/u. Discussed case with Dr. Marquis who was agreeable to care plan and disdhcarrge. Disposition Clinical Impression: Anxiety, Chest pain, Neck pain, Leg pain Disposition: HOME SELF-CARE Condition: Good Instructions (If sedation given, give patient instructions): Anxiety (ED) Additional Instructions: Please use medication as discussed. Please follow-up with family doctor in the next 2 days.. Please return to emergency room if the symptoms increase or worsen or for any other concerns. Is patient prescribed a controlled substance at d/c from ED?: No Referrals: Ernie Crain DO [Primary Care Provider] - 1-2 days Time of Disposition: 16:23
[2019-08-08 16:30] VITALS: BP 123/74; PULSE 76; RESP 18; TEMP 98
== END 2019-08-08 16:30 | disposition home or self-care (01) ==
LOC: EC 13:59
DX: F41.9 Anxiety disorder, unspecified (principal); R07.9 Chest pain, unspecified; M54.2 Cervicalgia; M79.606 Pain in leg, unspecified; J45.909 Unspecified asthma, uncomplicated; Z79.51 Long term (current) use of inhaled steroids; Z91.011 Allergy to milk products
CPT/HCPCS: 36415; 71046; 80053; 81025; 83735; 84484; 85025; 85379; 85610; 85730; 93005; 99285

== ENCOUNTER → 2022-06-25 | Outpatient (CLI) | payer OTHER, MEDICARE ==
--- NOTE | 2022-06-25 10:25 | FL ---
EXAMINATION TYPE: FL barium swallow DATE OF EXAM: 06/25/2022 9:45 AM COMPARISON: None CLINICAL INDICATION:Female, 26 years old with history of gerd K21.00; TECHNIQUE: The procedure was explained and patient history elicited. All patient questions were ans wered prior to start of procedure. Multiple spot fluoroscopic images of the esophagus were obtained a fter the oral ingestion of effervescent crystals and liquid barium as the contrast agent. Fluoroscopic time: 59 seconds Fluoroscopic images: 0 Radiographs taken: 241 DAP: 1601 FINDINGS: The esophagus demonstrates normal primary and secondary peristalsis. The esophageal mucosa is smooth without evidence of focal stricture, ulceration, or abnormal outpouching. No gastroesophageal reflu x disease was identified. IMPRESSION: 1. Normal esophagram.
== END | disposition home or self-care (01) ==
LOC: RADUSWWP 09:03
PROVIDERS: ATTEND Surgery Plastic and Reconstructive Surgery
DX: K21.00 Gastro-esophageal reflux disease with esophagitis, without bleeding (principal)
CPT/HCPCS: 74220

== ENCOUNTER → 2023-05-27 | Outpatient (CLI) | payer MEDICARE, OTHER ==
--- NOTE | 2023-05-27 15:06 | P.PN ---
Subjective Progress Note Date: 05/27/23 Principal diagnosis: breast pain 06/11/22 Ana Paula is a 26-year-old female who presents with a complaint of bilateral breast discomfort. As part of the evaluation she underwent bilateral breast ultrasound which was performed on . At the 11 o'clock position in the right breast there was a circumscribed oval mass. This measured 0.5 x 0.3 cm. It was favored to represent duct ectasia. At the 1 o'clock position in the left breast there was a circumscribed oval mass this measured 0.8 cm x 0.5 cm x 1 cm. This was suspicious for fibroadenoma. She does not feel any lumps masses or nodules of concern in either breast. The ultrasound was performed secondary to breast pain. The patient has discomfort in her left breast in the lateral aspect. This has been present for 1 year. The pain is described as stinging, throbbing, and burning. She cannot wear bra secondary discomfort with the area. It spreads throughout her lateral breast. She did not have any trauma or infection in her breast. She has never had any surgery on her breast. She is not complaining of any recent trauma or infection in her breast. The pain is worse right before her period 06-11-22 Ana Paula had an ultrasound-guided core biopsy of the 1 o'clock position of the left breast on . Pathology revealed benign breast with fibrocystic changes. There was some concern that this may be discordant however the films were reviewed with the pathology results with Dr. Cheng from radiology. He feels comfortable with a 3 month follow-up is reasonable and that most likely is just fibrocystic changes. The patient tolerated the biopsy without difficulty. We have discussed genetic testing and the patient is interested. This is secondary to her family history with an aunt dying with breast cancer at the age of 30. 05-28-23 The patient states the breast discomfort has improved. She did not have a repeat ultrasound after her core biopsy. She is not complaining of any new lumps masses or nodules of concern in either breast. Caffeine: none Nicotine: Negative chocolate: none BCP:patient is on the DEPO shot she has been on this for 4 years hormones: none drugs: none Family history: maternal aunt: at 30 with breast cancer, dx. at 14 father: lung cancer maternal grandmother: stomach cancer maternal uncle: lung cancer maternal grandfather: lung cancer Hormonal History: menarche: 16 [id number] 1P1 breast fed: no, age at birht: 23 periods regular is having her period now Surgical History: bilateral foot surgery bunyons removed Medical History: asthma Social History: nicotine: none, used to vape last year alcohol:none drugs: none - Constitutional Constitutional: Reports sweats, Denies chills - EENT Eyes: denies blurred vision, denies pain Ears: left: tinnitus Ears, nose, mouth and throat: Reports headache - Breasts Breasts: bilateral: as per HPI - Cardiovascular Comment: seems to be pain on chest wall Cardiovascular: Reports chest pain, Denies shortness of breath - Respiratory Respiratory: Reports cough - Gastrointestinal Gastrointestinal: Denies abdominal pain, Denies diarrhea, Denies nausea, Denies vomiting - Genitourinary (Female) Genitourinary: Denies dysuria, Denies hematuria - Menstruation Menstruation: Reports period normal - Musculoskeletal Comment: pain in her neck herniated disc from her neck to her sacrum Musculoskeletal: Reports as per HPI - Integumentary Integumentary: Denies pruritus, Denies rash - Neurological Neurological: Denies numbness, Denies weakness - Psychiatric Psychiatric: Denies anxiety, Denies depression - Endocrine Endocrine: Denies fatigue, Denies weight change - Hematologic/Lymphatic Comment: none - Allergic/Immunologic Allergic/Immunologic: Reports as per HPI Past Medical History Past Medical History: Asthma History of Any Multi-Drug Resistant Organisms: None Reported Past Surgical History: Orthopedic Surgery Additional Past Surgical History / Comment(s): feet Past Anesthesia/Blood Transfusion Reactions: No Reported Reaction Past Psychological History: Anxiety Past Alcohol Use History: None Reported Past Drug Use History: Marijuana - Past Family History Mother Family Medical History: No Reported History Medications and Allergies Home Medications Medication Instructions Recorded Confirmed Type Albuterol Inhaler [Ventolin Hfa 2 puff INHALATION RT-Q6H PRN 09/15/16 05/22/22 History Inhaler] Pnv,Calcium 72/Iron/Folic Acid 1 tab PO DAILY 09/15/16 05/22/22 History [ Plus Tablet] Allergies Allergy/AdvReac Type Severity Reaction Status Date / Time Penicillins Allergy Rapid Unverified 05/22/22 09:41 Heart Rate milk AdvReac Unknown Verified 08/08/19 14:06 Objective - Constitutional General appearance: Present: cooperative - EENT Eyes: Present: EOMI ENT: Present: hearing grossly normal - Neck Neck: Present: normal ROM - Respiratory Respiratory: bilateral: CTA - Cardiovascular Heart sounds: normal: S1, S2 - Gastrointestinal General gastrointestinal: Present: soft - Integumentary Integumentary: Present: normal turgor - Musculoskeletal Musculoskeletal: Present: gait normal - Psychiatric Psychiatric: Present: A&O x's 3, appropriate affect, intact judgment & insight - Additional findings Additional findings: Breast Exam: BRA: 32A Inspection: Bilateral grade 1 ptosis Palpation: Right breast: Multi positional exam fibrocystic changes no dominant masses or nodules of concern Right axilla: No adenopathy of concern Left breast: Multi positional exam fibrocystic changes no dominant masses or nodules of concern Left axilla: No adenopathy of concern Assessment and Plan Assessment: Impression: Fibrocystic breast changes Plan: Bilateral breast ultrasound Genetic testing Follow-up after ultrasound and genetic testing CC: Dr. Crain
[2023-05-27 15:35] VITALS: BP 113/75; PULSE 79; RESP 15; TEMP 98.5
== END ==
LOC: WWCWWP 14:30
PROVIDERS: ATTEND Surgery
DX: N60.11 Diffuse cystic mastopathy of right breast (principal); N60.12 Diffuse cystic mastopathy of left breast; N63.11 Unspecified lump in the right breast, upper outer quadrant; N63.21 Unspecified lump in the left breast, upper outer quadrant; J45.909 Unspecified asthma, uncomplicated; N64.4 Mastodynia; F12.90 Cannabis use, unspecified, uncomplicated; Z80.3 Family history of malignant neoplasm of breast; Z87.891 Personal history of nicotine dependence; Z88.0 Allergy status to penicillin; Z91.011 Allergy to milk products; Z79.899 Other long term (current) drug therapy

== ENCOUNTER → 2023-06-04 | Outpatient (CLI) | payer MEDICARE, OTHER ==
--- NOTE | 2023-06-04 15:03 | USB ---
Reason for Exam: Clinical finding. Patient History: 05/29/2022, US biopsy breast VAD LT on the Left side. Prior Study Comparison: 05/22/2022 Right US breast limited RT, [facility]. Findings: The whole breast of both breasts, the axilla of both breasts and the retroareolar of both breasts were scanned. A complete US of all four quadrants of the bilateral breast, axilla, and retro-areolar region were reviewed. Very dense tissues are present throughout. In the left breast, 1:00 position, 2 cm from the nipple, corresponding to the site of previous biopsy, there is redemonstration of an oval hypoechoic area currently measuring 9 x 6 x 3 mm (versus 11 x 8 x 4 mm, previously). Adjacent microclip related to prior biopsy. No other solid or cystic lesion on either side or axillary adenopathy. Overall Assessment: Benign, BI-RAD 2 Management: Screening Mammogram of both breasts at age 40. Unless there is an indication to start sooner. Further clinical management of any breast pain. Patient can continue monthly self breast exams. Results were given to the patient verbally at the time of exam. Electronically signed and approved by: Jessica Cheng M.D. Radiologist
== END | disposition home or self-care (01) ==
LOC: RADUSWWP 14:26
PROVIDERS: ATTEND Surgery
DX: N64.4 Mastodynia (principal)

== ENCOUNTER → 2024-05-03 | Outpatient (CLI) | payer MEDICARE ==
--- NOTE | 2024-05-03 12:44 | MR ---
EXAMINATION TYPE: MR knee RT wo con DATE OF EXAM: 05/03/2024 COMPARISON: NONE HISTORY: Right knee pain hand swelling, S/P fall on ice x2 in the last month. TECHNIQUE: Multiplanar, multisequence images of the knee is performed without IV contrast. FINDINGS: MEDIAL MENISCUS: Anterior and posterior horns are intact without tear. LATERAL MENISCUS: Anterior and posterior horns are intact without tear. CRUCIATE LIGAMENTS: The anterior and posterior cruciate ligaments are intact and unremarkable. COLLATERAL LIGAMENTS: The medial collateral ligament and lateral collateral ligament complex are inta ct and unremarkable. EXTENSOR MECHANISM: Visualized quadriceps and patellar tendons are intact. EFFUSION: No significant suprapatellar joint effusion. POPLITEAL CYST: No popliteal/lopez cyst. TRICOMPARTMENT SPACES: Tricompartment joint spaces are preserved. No significant spurring is seen. CARTILAGE: Tricompartmental articular cartilage is maintained. BONE MARROW SIGNAL: No focal abnormal marrow signal is appreciated. OTHER: Mild subcutaneous edema anterior superficial infrapatellar level. IMPRESSION: No meniscal or ligamentous tear is seen. [facility], , 05/03/2024 12:41 PM
== END | disposition home or self-care (01) ==
LOC: RADMRIMAIN 10:52
PROVIDERS: ATTEND Family Medicine
DX: M25.561 Pain in right knee (principal); W00.0XXA Fall on same level due to ice and snow, initial encounter

== ENCOUNTER → 2024-05-09 | Outpatient (CLI) | payer MEDICARE ==
--- NOTE | 2024-05-09 15:27 | FL ---
EXAMINATION TYPE: FL arthrogram hip RT DATE OF EXAM: 05/09/2024 3:19 PM CLINICAL INDICATION:Female, 28 years old with history of M25.551 PAIN IN RIGHT HIP; COMPARISON: None TECHNIQUE/PROCEDURE: After the procedure was explained and informed consent was obtained from the pat ient, the patient was prepped and draped in the usual sterile fashion. 1% Lidocaine was used as local anesthetic using a 25 gauge needle. A 22 gauge needle was then advanced into the right hip joint usi ng fluoroscopic guidance. Approximately 8 cc of contrast was injected into the joint (an admixture of Gadavist, Isovue-370, and sterile saline). was then injected into the joint. The needle was then rem geovanny and a Band-Aid was applied. The patient tolerated procedure well. The patient was then sent to the MR unit for MRI exam. Fluoroscopic time:40 min Fluoroscopic images:0 Radiographs taken: 3 FINDINGS: Contrast was seen filling the right hip joint. No extracapsular contrast collections were noted.. IMPRESSION: Successful right hip arthrogram. MRI right hip report to follow. [facility], , 05/09/2024 3:25 PM
== END | disposition home or self-care (01) ==
LOC: RADFLMAIN 14:14
PROVIDERS: ATTEND Family Medicine
DX: M25.551 Pain in right hip (principal)
CPT/HCPCS: 27093; 73525; 73722; A9585

== ENCOUNTER → 2024-08-09 | Outpatient (CLI) | payer MEDICARE ==
--- NOTE | 2024-08-09 16:38 | CA ---
Transthoracic Echo Report Name: Ana Paula Bauer Age: 28 Gender: F : 1995 Exam Date: 08/09/2024 11:15 Exam Location: [facility] Ht (in): 71 Wt (lb): 135 Ordering Physician: Ernie Crain DO Attending/Referring Phys: Kaci Xiong [facility] [employer] Demetria Barr RDCS Procedure CPT: Indications: Z82.41 Family hx of sudden cardiac Cardiac Hx: Technical Quality: Good Contrast 1: Total Dose (mL): Contrast 2: Total Dose (mL): MEASUREMENTS (Male / Female) Normal Values 2D ECHO LV Diastolic Diameter PLAX 4.0 cm 4.2 - 5.9 / 3.9 - 5.3 cm LV Systolic Diameter PLAX 2.8 cm IVS Diastolic Thickness 0.9 cm 0.6 - 1.0 / 0.6 - 0.9 cm LVPW Diastolic Thickness 0.8 cm 0.6 - 1.0 / 0.6 - 0.9 cm LV Relative Wall Thickness 0.4 RV Internal Dim ED PLAX 2.1 cm LA Systolic Diameter LX 3.0 cm 3.0 - 4.0 / 2.7 - 3.8 cm LV Diastolic Volume MOD BP 64.5 cm??? 67 - 155 / 56 - 104 cm??? LV Systolic Volume MOD BP 28.0 cm??? 22 - 58 / 19 - 49 cm??? LV Ejection Fraction MOD BP 56.6 % >= 55 % LV Cardiac Index MOD BP 1406.3 cm???/min???m??? LV Diastolic Volume MOD 4C 66.6 cm??? LV Systolic Volume MOD 4C 30.8 cm??? LV Ejection Fraction MOD 4C 53.7 % LV Cardiac Index MOD 4C 1378.8 cm???/min???m??? LV Diastolic Length 4C 7.5 cm LV Systolic Length 4C 6.3 cm LV Diastolic Volume MOD 2C 60.3 cm??? LV Systolic Volume MOD 2C 25.1 cm??? LV Ejection Fraction MOD 2C 58.3 % LV Cardiac Index MOD 2C 1354.5 cm???/min???m??? LV Diastolic Length 2C 7.8 cm LV Systolic Length 2C 6.4 cm LA Volume 22.5 cm??? 18 - 58 / 22 - 52 cm??? LA Volume Index 12.9 cm???/m??? 16 - 28 cm???/m??? M-MODE Aortic Root Diameter MM 2.3 cm LA Systolic Diameter MM 2.8 cm LA Ao Ratio MM 1.2 AV Cusp Separation MM 1.6 cm DOPPLER MV Area PHT 3.0 cm??? Mitral E Point Velocity 89.6 cm/s Mitral A Point Velocity 46.5 cm/s Mitral E to A Ratio 1.9 MV Deceleration Time 254.1 ms FINDINGS Left Ventricle Left ventricular ejection fraction is estimated at 55-60 %. Normal Left ventricular size, wall thickness, systolic function with no obvious regional wall motion abnormalities. Normal Left ventricular diastolic filling pattern. Right Ventricle Normal right ventricular size and function. Right ventricular systolic pressure within normal limits. Right Atrium Normal right atrial size. Left Atrium Normal left atrial size. Mitral Valve Structurally normal mitral valve. Trace mitral regurgitation. No mitral stenosis. Aortic Valve Trileaflet aortic valve. No aortic valve stenosis or regurgitation. Tricuspid Valve Structurally normal tricuspid valve. Trace tricuspid regurgitation. No tricuspid stenosis. Pulmonic Valve Structurally normal pulmonic valve. Trace pulmonic regurgitation. No pulmonic stenosis. Pericardium No pericardial or pleural effusion. Aorta Normal size aortic root and proximal ascending aorta. CONCLUSIONS Normal left ventricular ejection fraction 55 to 60% Trace mitral regurgitation Trace tricuspid regurgitation No pericardial effusion Previewed by: Dr. Dante Colon DO (Electronically Signed) Final Date: 09 August 2024 16:37
== END | disposition home or self-care (01) ==
LOC: RADECHMAIN 10:54
PROVIDERS: ATTEND Family Medicine
DX: I08.1 Rheumatic disorders of both mitral and tricuspid valves (principal); Z82.41 Family history of sudden cardiac death
CPT/HCPCS: 93306

== ENCOUNTER 2024-08-29 09:25 | Emergency (ER) | payer MEDICARE ==
[2024-08-29 09:28] VITALS: TEMP 98.3
--- NOTE | 2024-08-29 09:53 | ED ---
General Adult HPI - General Stated complaint: abd lump Time Seen by Provider: 08/29/24 09:42 Source: patient, RN notes reviewed Mode of arrival: ambulatory Limitations: no limitations - History of Present Illness Initial comments: 28 year old female presents to the ED for evaluation of localized epigastric pain. She mentions she was lifting something heavy around 5 months ago and hurt herself in the epigastric area. She also says she fell on ice around the same time and hurt the same affected area too. She reports that her pain is worse with movements like turning and bending down. She endorses intermittent chest wall pain but denies any fever, chills, or SOB. - Related Data Home Medications Medication Instructions Recorded Confirmed Albuterol Inhaler [Ventolin Hfa 2 puff INHALATION RT-Q6H PRN 09/15/16 05/27/23 Inhaler] tiZANidine [Zanaflex] 2 mg PO Q8HR PRN 05/25/22 05/27/23 Previous Rx's Medication Instructions Recorded Omeprazole [PriLOSEC] 40 mg PO DAILY #14 cap 08/29/24 Ondansetron Odt [Zofran Odt] 4 mg PO Q8HR PRN #10 tab 08/29/24 Allergies Allergy/AdvReac Type Severity Reaction Status Date / Time Penicillins Allergy Rapid Unverified 08/29/24 09:28 Heart Rate milk AdvReac Unknown Verified 08/29/24 09:28 Review of Systems ROS Statement: Those systems with pertinent positive or pertinent negative responses have been documented in the HPI. ROS Other: All systems not noted in ROS Statement are negative. Past Medical History Past Medical History: Asthma History of Any Multi-Drug Resistant Organisms: None Reported Past Surgical History: Orthopedic Surgery Additional Past Surgical History / Comment(s): feet Past Anesthesia/Blood Transfusion Reactions: No Reported Reaction Past Psychological History: Anxiety Smoking Status: Never smoker, Vaper Past Alcohol Use History: None Reported Past Drug Use History: None Reported - Past Family History Mother Family Medical History: No Reported History General Exam Limitations: no limitations General appearance: alert, in no apparent distress Respiratory exam: Present: normal lung sounds bilaterally. Absent: respiratory distress, wheezes, rales, rhonchi, stridor Cardiovascular Exam: Present: regular rate, normal rhythm, normal heart sounds, other (endorses chest wall tenderness ). Absent: systolic murmur, diastolic murmur, rubs, gallop, clicks GI/Abdominal exam: Present: soft, tenderness (epigastric area ), normal bowel sounds. Absent: distended, guarding, rebound, rigid Course Vital Signs 08/29/24 08/29/24 09:26 11:14 Temperature 98.3 F Pulse Rate 80 65 Respiratory 20 16 Rate Blood Pressure 145/84 110/68 O2 Sat by Pulse 99 97 Oximetry Medical Decision Making - Medical Decision Making Was pt. sent in by a medical professional or institution (, [place], [employer], urgent care, hospital, or group home...) When possible be specific @ -No Did you speak to anyone other than the patient for history (EMS, parent, family, police, friend...)? What history was obtained from this source @ -No Did you review nursing and triage notes (agree or disagree)? Why? @ -I reviewed and agree with nursing and triage notes Were old charts reviewed (outside hosp., previous admission, EMS record, old EKG, old radiological studies, urgent care reports/EKG's, group home records)? Report findings @ -No old charts were reviewed Differential Diagnosis (chest pain, altered mental status, abdominal pain women, abdominal pain men, vaginal bleeding, weakness, fever, dyspnea, syncope, headache, dizziness, GI bleed, back pain, seizure, CVA, palpatations, mental health, musculoskeletal)? @ -[Differential Abdominal Pain Women: Appendicitis, Cholecystitis, diverticulosis, ischemic bowel, pancreatitis, hepatitis, UTI, gastroenteritis, AAA, incarcerated hernia, bowel obstruction, constipation, inflammatory bowel, hepatitis, peptic ulcer disease, splenic infarction, perforated viscus, vulvitis, ovarian torsion, PID, kidney stone, placenta abruption, this is not meant to be an all-inclusive list EKG interpreted by me (3pts min.). @ -None X-rays interpreted by me (1pt min.). @ -None done CT interpreted by me (1pt min.). @ -None done U/S interpreted by me (1pt. min.). @ -None done What testing was considered but not performed or refused? (CT, X-rays, U/S, labs)? Why? @ -None What meds were considered but not given or refused? Why? @ -None Did you discuss the management of the patient with other professionals (professionals i.e. , [place], [employer], lab, RT, psych nurse, social human services assistants, six sigma black belt engineer, teacher, chief resource officer, behavioral health case manager)? Give summary @ -No Was smoking cessation discussed for >3mins.? @ -No Was critical care preformed (if so, how long)? @ -No Were there social determinants of health that impacted care today? How? (Homelessness, low income, unemployed, alcoholism, drug addiction, transportation, low edu. Level, literacy, decrease access to med. care, senior care, rehab)? @ -No Was there de-escalation of care discussed even if they declined (Discuss DNR or withdrawal of care, Hospice)? DNR status @ -No What co-morbidities impacted this encounter? (DM, HTN, Smoking, COPD, CAD, Cancer, CVA, ARF, Chemo, Hep., AIDS, mental health diagnosis, sleep apnea, morbid obesity)? @ -None Was patient admitted / discharged? Hospital course, mention meds given and route, prescriptions, significant lab abnormalities, going to OR and other pertinent info. @ -discharge patient has abdominal pain more likely related from reflux, possible underlying gastritis esophagitis. Patient was started on omeprazole and follow-up with GI for EGD Undiagnosed new problem with uncertain prognosis? @ -No Drug Therapy requiring intensive monitoring for toxicity (Heparin, Nitro, Insulin, Cardizem)? @ -No Were any procedures done? @ -No Diagnosis/symptom? @ -GERD, abdominal pain Acute, or Chronic, or Acute on Chronic? @ -Acute Uncomplicated (without systemic symptoms) or Complicated (systemic symptoms)? @ -Complicated Side effects of treatment? @ -No Exacerbation, Progression, or Severe Exacerbation? @ -No Poses a threat to life or bodily function? How? (Chest pain, [place], [place], pneumonia, PE, COPD, DKA, ARF, appy, cholecystitis, CVA, Diverticulitis, Homicidal, Su[place] mena, threat to staff... and all critical care pts) @ -No - Lab Data Result diagrams: 08/29/24 09:59 08/29/24 09:59 Lab Results 08/29/24 08/29/24 08/29/24 Range/Units 09:59 09:59 10:01 WBC 4.43 L (4.50-10.00) 10*3/uL RBC 4.17 (4.10-5.20) 10*6/uL Hgb 14.2 (12.0-15.0) g/dL Hct 39.8 (37.2-46.3) % MCV 95.4 (80.0-97.0) fL MCH 34.1 H (27.0-32.0) pg MCHC 35.7 (32.0-37.0) g/dL Plt Count 202 (140-440) 10*3/uL MPV 9.3 L (9.5-12.2) fL Immature Gran % (Auto) 0 % Neutrophils % 57.2 % Lymphocytes % 31.8 % Monocytes % 8.8 % Eosinophils % 2.0 % Basophils % 0.2 % Immature Gran # 0.00 (0.00-0.04) 10*3/uL Neutrophils # 2.53 (1.80-7.70) 10*3/uL Lymphocytes # 1.41 (0.90-5.00) 10*3/uL Monocytes # 0.39 (0.20-1.00) 10*3/uL Eosinophils # 0.09 (0.04-0.35) 10*3/uL Basophils # 0.01 (0.00-0.10) 10*3/uL Sodium 137 (137-145) mmol/L Potassium 4.3 (3.5-5.1) mmol/L Chloride 105 (98-107) mmol/L Carbon Dioxide 25 (22-30) mmol/L Anion Gap 7 mmol/L BUN 12 (7-17) mg/dL Creatinine 0.76 (0.52-1.04) mg/dL Est GFR (CKD-EPI)AfAm >90 (>60 ml/min/1.73 sqM) Est GFR (CKD-EPI)NonAf >90 (>60 ml/min/1.73 sqM) Glucose 94 (74-99) mg/dL Calcium 9.7 (8.4-10.2) mg/dL Total Bilirubin 0.9 (0.2-1.3) mg/dL AST 28 (14-36) U/L ALT 24 (4-34) U/L Alkaline Phosphatase 38 (38-126) U/L Total Protein 7.6 (6.3-8.2) g/dL Albumin 4.7 (3.5-5.0) g/dL Lipase 65 (23-300) U/L Urine Color Colorless Urine Appearance Clear (Clear) Urine pH 6.5 (5.0-8.0) Ur Specific [place] 1.012 (1.001-1.035) Urine Protein Negative (Negative) Urine Glucose (UA) Negative (Negative) Urine Ketones Negative (Negative) Urine Blood Trace H (Negative) Urine Nitrite Negative (Negative) Urine Bilirubin Negative (Negative) Urine Urobilinogen <2.0 (<2.0) mg/dL Ur Leukocyte Esterase Negative (Negative) Urine RBC 1 (0-5) /hpf Urine WBC <1 (0-5) /hpf Ur Squamous Epith Cells <1 (0-4) /hpf Urine Bacteria Rare H (None) /hpf Urine HCG, Qual (Not Detectd) 08/29/24 Range/Units 10:01 WBC (4.50-10.00) 10*3/uL RBC (4.10-5.20) 10*6/uL Hgb (12.0-15.0) g/dL Hct (37.2-46.3) % MCV (80.0-97.0) fL MCH (27.0-32.0) pg MCHC (32.0-37.0) g/dL Plt Count (140-440) 10*3/uL MPV (9.5-12.2) fL Immature Gran % (Auto) % Neutrophils % % Lymphocytes % % Monocytes % % Eosinophils % % Basophils % % Immature Gran # (0.00-0.04) 10*3/uL Neutrophils # (1.80-7.70) 10*3/uL Lymphocytes # (0.90-5.00) 10*3/uL Monocytes # (0.20-1.00) 10*3/uL Eosinophils # (0.04-0.35) 10*3/uL Basophils # (0.00-0.10) 10*3/uL Sodium (137-145) mmol/L Potassium (3.5-5.1) mmol/L Chloride (98-107) mmol/L Carbon Dioxide (22-30) mmol/L Anion Gap mmol/L BUN (7-17) mg/dL Creatinine (0.52-1.04) mg/dL Est GFR (CKD-EPI)AfAm (>60 ml/min/1.73 sqM) Est GFR (CKD-EPI)NonAf (>60 ml/min/1.73 sqM) Glucose (74-99) mg/dL Calcium (8.4-10.2) mg/dL Total Bilirubin (0.2-1.3) mg/dL AST (14-36) U/L ALT (4-34) U/L Alkaline Phosphatase (38-126) U/L Total Protein (6.3-8.2) g/dL Albumin (3.5-5.0) g/dL Lipase (23-300) U/L Urine Color Urine Appearance (Clear) Urine pH (5.0-8.0) Ur Specific [place] (1.001-1.035) Urine Protein (Negative) Urine Glucose (UA) (Negative) Urine Ketones (Negative) Urine Blood (Negative) Urine Nitrite (Negative) Urine Bilirubin (Negative) Urine Urobilinogen (<2.0) mg/dL Ur Leukocyte Esterase (Negative) Urine RBC (0-5) /hpf Urine WBC (0-5) /hpf Ur Squamous Epith Cells (0-4) /hpf Urine Bacteria (None) /hpf Urine HCG, Qual Not Detected (Not Detectd) Disposition Clinical Impression: GERD (gastroesophageal reflux disease), Abdominal pain Disposition: HOME SELF-CARE Condition: Stable Instructions (If sedation given, give patient instructions): Gastritis (ED), GERD (Gastroesophageal Reflux Disease) in Children (ED) Additional Instructions: Please return to the Emergency Department if symptoms worsen or any other concerns. Prescriptions: Omeprazole [PriLOSEC] 40 mg PO DAILY #14 cap Ondansetron Odt [Zofran Odt] 4 mg PO Q8HR PRN #10 tab PRN Reason: Nausea Is patient prescribed a controlled substance at d/c from ED?: No Referrals: Ernie Crain DO [Primary Care Provider] - 1-2 days Flakita Majano MD [STAFF PHYSICIAN] - 1-2 days Time of Disposition: 11:05
[2024-08-29 10:18] LABS: Basophils # (A) 0.01 10*3/uL (0.00-0.10); Basophils % (A) 0.2 %; Eosinophils # (A) 0.09 10*3/uL (0.04-0.35); HCT 39.8 % (37.2-46.3); HGB 14.2 g/dL (12.0-15.0); Lymphocytes # (A) 1.41 10*3/uL (0.90-5.00); Lymphocytes % (A) 31.8 %; MCH 34.1 pg (27.0-32.0); MCHC 35.7 g/dL (32.0-37.0); MCV 95.4 fL (80.0-97.0); Mean Platelet Volume 9.3 fL (9.5-12.2); Monocytes # (A) 0.39 10*3/uL (0.20-1.00); Monocytes % (A) 8.8 %; Neutrophils # (A) 2.53 10*3/uL (1.80-7.70); Neutrophils % (A) 57.2 %; Platelet Count 202 10*3/uL (140-440); RBC 4.17 10*6/uL (4.10-5.20); RDW 12.6 % (11.5-14.5); WBC 4.43 10*3/uL (4.50-10.00)
[2024-08-29 10:29] LABS: Appearance,Urine Clear (Clear); Bacteria,Urine Rare /hpf; Bilirubin,Urine Negative (Negative); Blood,Urine Trace (Negative); Color,Urine Colorless; Glucose,Urine (UA) Negative (Negative); Ketones,Urine Negative (Negative); Leukocyte Esterase,Urine Negative (Negative); Nitrite,Urine Negative (Negative); PH, Urine 6.5 (5.0-8.0); Protein,Urine Negative (Negative); RBC,Urine 1 /hpf (0-5); Specific Gravity,Urine 1.012 (1.001-1.035); Squamous Epithelial Cell,Urine <1 /hpf (0-4); Urobilinogen,Urine <2.0 mg/dL (<2.0); WBC,Urine <1 /hpf (0-5)
[2024-08-29 10:31] LABS: ALT 24 U/L (4-34); AST 28 U/L (14-36); African American GFR (CKD) >90 (>60 ml/min/1.73 sqM); Albumin 4.7 g/dL (3.5-5.0); Alkaline Phosphatase 38 U/L (38-126); Anion Gap 7 mmol/L; Blood Urea Nitrogen 12 mg/dL (7-17); Calcium 9.7 mg/dL (8.4-10.2); Carbon Dioxide 25 mmol/L (22-30); Chloride 105 mmol/L (98-107); Glucose 94 mg/dL (74-99); Lipase 65 U/L (23-300); Non-African American GFR(CKD) >90 (>60 ml/min/1.73 sqM); Potassium 4.3 mmol/L (3.5-5.1); Sodium 137 mmol/L (137-145); Total Bilirubin 0.9 mg/dL (0.2-1.3); Total Protein 7.6 g/dL (6.3-8.2)
[2024-08-29 11:15] VITALS: BP 110/68; PULSE 65
[2024-08-29 12:41] VITALS: RESP 16
== END 2024-08-29 11:16 | disposition home or self-care (01) ==
LOC: EC 09:25
DX: R10.13 Epigastric pain (principal); K21.9 Gastro-esophageal reflux disease without esophagitis; F17.290 Nicotine dependence, other tobacco product, uncomplicated; Z88.0 Allergy status to penicillin; Z91.011 Allergy to milk products; W00.0XXA Fall on same level due to ice and snow, initial encounter
CPT/HCPCS: 36415; 80053; 81001; 81025; 83690; 85025; 99284